=== PATIENT | female | born 1960 | race Caucasian/White ===

== ENCOUNTER 2018-11-18 21:37 | Inpatient (IN) | payer MEDICARE ==
[~2018-11-18] VITALS: Ht 162.6 cm; Wt 124.0 kg
[2018-11-18] MEDS ORDERED: ALBUTEROL/IPRATROPIUM 2.5MG/0.5MG, 3 ML NPPB ONE (23:00)
[2018-11-18 23:31] LABS: BASOPHILS # (AUTO) 0.03 x10^3/uL (0-0.1); BASOPHILS % (AUTO) 0 % (0-1); EOSINOPHILS # (AUTO) 0.24 x10^3/uL (0-0.4); EOSINOPHILS % (AUTO) 2 % (1-7); LYMPHOCYTES % (AUTO) 11 % (22-44); MD NO; MEAN CORPUSCULAR HEMOGLOBIN 29.6 pg (27.0-34.8); MEAN CORPUSCULAR HGB CONC 33.3 g/dL (32.4-35.8); MEAN CORPUSCULAR VOLUME 88.9 fL (80-100); MONOCYTES # (AUTO) 0.79 x10^3/uL (0.2-0.8); MONOCYTES % (AUTO) 8 % (2-9); NEUTROPHILS # (AUTO) 8.34 x10^3/uL (1.8-6.8); NEUTROPHILS % (AUTO) 79 % (42-75); PLATELET COUNT 324 x10^3/uL (130-400); RED BLOOD COUNT 4.47 x10^6/uL (3.82-5.3); RED CELL DISTRIBUTION WIDTH 13.6 % (9.6-15.2)
[2018-11-18 23:42] LABS: ALBUMIN 3.6 g/dL (3.4-5.0); ANION GAP 5 mmol/L (5-15); CALCIUM 8.8 mg/dL (8.5-10.1); CHLORIDE 105 mmol/L (98-107); CREATININE 0.76 mg/dL (0.55-1.02)
[2018-11-18 23:46] LABS: TROPONIN I < 0.015 ng/mL (0.000-0.045)
--- NOTE | 2018-11-19 00:26 | NUR ---
pt to room from lobby
--- NOTE | 2018-11-19 00:30 | NUR ---
FIRST CONTACT WITH PT. PT C/O SOB/COUGH X A FEW DAYS. HX OF ASTHMA. ALL MONITORS IN PLACE. CALL LIGHT WITHIN REACH. EDMD AT BEDSIDE TO ASSESS AT THIS TIME. PT'S AOX4.
--- NOTE | 2018-11-19 00:47 | NUR ---
PT MEDICATED PER EMAR. PT TOLERATED WELL. PT'S AOX4. RESPS EVEN AND UNLABORED.
[2018-11-19] MEDS ORDERED: SODIUM CHLORIDE FLUSH 10ML SYR IVF ONE (01:00)
--- NOTE | 2018-11-19 01:04 | NUR ---
PT IN CT NOW.
[2018-11-19] MEDS ORDERED: OMNIPAQUE 350 MG/ML, 100ML BOTTLE ONE (01:12)
--- NOTE | 2018-11-19 01:14 | NUR ---
PT BACK TO ROOM FROM CT.
[2018-11-19] MEDS ORDERED: SODIUM CHLORIDE FLUSH 10ML SYR IVF PRN (02:00)
--- NOTE | 2018-11-19 02:19 | NUR ---
PT MEDICATED PER EMAR. PT TOLERATED WELL. PT'S AOX4. RESPS EVEN AND UNLABORED.
[2018-11-19] MEDS ORDERED: ENOXAPARIN 120MG/0.8ML SQ ONE (02:30)
[2018-11-19] MEDS ORDERED: MORPHINE PO ×2 (02:32→02:33)
[2018-11-19] MEDS ORDERED: META800T PO (02:34)
[2018-11-19] MEDS ORDERED: GABA600T7 PO (02:34)
[2018-11-19] MEDS ORDERED: ESTR1.25 PO (02:35)
[2018-11-19] MEDS ORDERED: DILT120T4 PO (02:36)
[2018-11-19] MEDS ORDERED: ISOS30TA8 PO (02:37)
[2018-11-19] MEDS ORDERED: LEVO100T5 PO (02:38)
[2018-11-19] MEDS ORDERED: ACID REFLEX (02:38)
[2018-11-19] MEDS ORDERED: SUCR1TAB33 PO (02:39)
[2018-11-19] MEDS ORDERED: ALBU0.63 NEB (02:40)
[2018-11-19] MEDS ORDERED: ALBUTEROL SULFATE 2.5 MG/3 ML ONE ×5 (03:22→14:04)
[2018-11-19] MEDS ORDERED: ACETAMINOPHEN 325 MG TABLET PO PRN (03:30)
[2018-11-19] MEDS ORDERED: hydrALAzine 20 MG/ML, 1ML IVPush PRN (03:30)
[2018-11-19] MEDS ORDERED: POLYETHYLENE GLYCOL 17 GM PACKET PO PRN (03:30)
[2018-11-19] MEDS ORDERED: Enoxaparin 1 mg/kg protocol SQ SCH (03:30)
[2018-11-19] MEDS ORDERED: methylPREDNISolone SOD SUCC 40 MG/ML ONE ×3 (03:52→14:52)
[2018-11-19] MEDS: methylPREDNISolone SOD SUCC 40 MG/ML IVPush SCH ×4 (03:56→21:23)
--- NOTE | 2018-11-19 03:58 | NUR ---
PT MEDICATED PER EMAR. PT TOLERATED WELL.
--- NOTE | 2018-11-19 04:08 | NUR ---
MED ORDERED FROM PHARMACY.
[2018-11-19] MEDS: ENOXAPARIN 120MG/0.8ML SQ SCH ×2 (05:30→18:25)
[2018-11-19] MEDS: morphine SULFATE 60 MG TABLET.ER PO SCH ×2 (05:42→15:26)
[2018-11-19] MEDS: LEVOTHYROXINE 100 MCG TABLET PO SCH (05:42)
--- NOTE | 2018-11-19 05:44 | NUR ---
pt medicated per emar. pt tolerated well. pt's aox4. resps even and unlabored.
--- NOTE | 2018-11-19 06:29 | NUR ---
pt sleeping in [facility]. resps even and unlabored. all monitors in place. call light within reach.
[2018-11-19] MEDS: ALBUTEROL SULFATE 2.5 MG/3 ML NPPB SCH ×4 (06:40→20:10)
--- NOTE | 2018-11-19 06:55 | NUR ---
RECEIVED REPORT FROM KARYNA
--- NOTE | 2018-11-19 06:56 | NUR ---
report given to gillian dykes.
--- NOTE | 2018-11-19 07:22 | NUR ---
DIET TRAY ORDERED AND MEDS ORDERED
--- NOTE | 2018-11-19 08:30 | NUR ---
PT GIVEN MEDS AND MEAL TRAY DELIVERED.
[2018-11-19] MEDS ORDERED: GABAPENTIN 300 MG CAPSULE ONE ×2 (08:56→15:22)
[2018-11-19] MEDS ORDERED: ESTROGENS CONJUGATED 0.625 MG TABLET PO SCH (09:00)
[2018-11-19] MEDS: Metaxalone** 800 MG PO SCH ×3 (09:04→23:01)
[2018-11-19] MEDS: DILTIAZEM 120 MG TABLET PO SCH (09:04)
[2018-11-19] MEDS: ISOSORBIDE MONONITRATE ER 30 MG TABLET PO SCH (09:05)
[2018-11-19] MEDS: GABAPENTIN 300 MG CAPSULE PO SCH ×3 (09:05→21:23)
--- NOTE | 2018-11-19 10:00 | NUR ---
PT FINISHED 100% MEAL TRAY. PT RESTING IN BED.
--- NOTE | 2018-11-19 10:11 | NUR ---
RT AT BEDSIDE FOR BREATHING TREATMENT
--- NOTE | 2018-11-19 11:03 | NUR ---
PT RESTING IN BED.
--- NOTE | 2018-11-19 12:23 | NUR ---
PT SLEEPING AT THIS TIME. MEAL TRAY DELIVERED AND PLACED AT BEDSIDE.
--- NOTE | 2018-11-19 12:42 | NUR ---
PT. REMAINS MONITORED. VSS. PT. IS EATING LUNCH WITHOUT CONCERNS.
--- NOTE | 2018-11-19 13:40 | NUR ---
RT AT BEDSIDE GIVING PT BREATHING TREATMENT.
--- NOTE | 2018-11-19 14:38 | NUR ---
PT UP TO BR AND VOIDED.
--- NOTE | 2018-11-19 15:30 | NUR ---
PT SLEEPING AT THIS TIME.
--- NOTE | 2018-11-19 16:57 | NUR ---
DIET TRAY ORDERED. PT RESTING IN BED. VITALS STABLE.
--- NOTE | 2018-11-19 18:16 | NUR ---
received bed and will call report.
--- NOTE | 2018-11-19 18:44 | NUR ---
called report to kit dykes. pt will then be transferred to floor.
--- NOTE | 2018-11-19 19:12 | NUR ---
PT TRANSFERRED TO FLOOR.
[2018-11-19 19:38] VITALS: BP 148/74
[2018-11-19 21:18] LABS: PROTHROMBIN TIME 10.5 Seconds (9.6-11.5)
[2018-11-19] MEDS: SUCRALFATE 1 GM TABLET PO SCH (21:23)
[2018-11-19] MEDS: WARFARIN 10 MG TABLET PO-COUM SCH (23:02)
[2018-11-20] MEDS: methylPREDNISolone SOD SUCC 40 MG/ML IVPush SCH ×4 (03:21→21:57)
[2018-11-20] MEDS: morphine SULFATE 60 MG TABLET.ER PO SCH ×2 (03:22→15:54)
[2018-11-20 03:30] VITALS: BP 122/63
[2018-11-20 05:35] LABS: PROTHROMBIN TIME 10.5 Seconds (9.6-11.5)
[2018-11-20 05:44] LABS: ANION GAP 7 mmol/L (5-15); CALCIUM 9.1 mg/dL (8.5-10.1); CHLORIDE 104 mmol/L (98-107)
[2018-11-20 05:46] LABS: CREATININE 0.81 mg/dL (0.55-1.02)
[2018-11-20 05:57] LABS: BASOPHILS % (AUTO) 0 % (0-1); EOSINOPHILS % (AUTO) 0 % (1-7); LYMPHOCYTES # (AUTO) 0.49 x10^3/uL (1-3.4); LYMPHOCYTES % (AUTO) 7 % (22-44); MD NO; MEAN CORPUSCULAR HEMOGLOBIN 29.5 pg (27.0-34.8); MEAN CORPUSCULAR HGB CONC 32.9 g/dL (32.4-35.8); MEAN CORPUSCULAR VOLUME 89.6 fL (80-100); MEAN PLATELET VOLUME 8.3 fL (7.4-10.4); MONOCYTES # (AUTO) 0.48 x10^3/uL (0.2-0.8); MONOCYTES % (AUTO) 7 % (2-9); NEUTROPHILS # (AUTO) 5.88 x10^3/uL (1.8-6.8); NEUTROPHILS % (AUTO) 86 % (42-75); PLATELET COUNT 281 x10^3/uL (130-400); RED BLOOD COUNT 3.99 x10^6/uL (3.82-5.3); RED CELL DISTRIBUTION WIDTH 13.5 % (9.6-15.2)
[2018-11-20] MEDS: LEVOTHYROXINE 100 MCG TABLET PO SCH (06:17)
[2018-11-20] MEDS: ENOXAPARIN 120MG/0.8ML SQ SCH ×2 (06:17→17:20)
[2018-11-20] MEDS: ALBUTEROL SULFATE 2.5 MG/3 ML NPPB SCH ×4 (06:55→18:43)
[2018-11-20 07:36] VITALS: BP 133/72
[2018-11-20] MEDS: DILTIAZEM 120 MG TABLET PO SCH (10:20)
[2018-11-20] MEDS: GABAPENTIN 300 MG CAPSULE PO SCH ×3 (10:21→21:57)
[2018-11-20] MEDS: SUCRALFATE 1 GM TABLET PO SCH ×2 (10:21→21:57)
[2018-11-20] MEDS: ISOSORBIDE MONONITRATE ER 30 MG TABLET PO SCH (10:24)
[2018-11-20] MEDS: Metaxalone** 800 MG PO SCH ×3 (10:25→21:00)
[2018-11-20 13:00] VITALS: BP_SYST 128; BP_SYST 131; BP_DIAS 77
[2018-11-20] MEDS: morphine SULFATE 15 MG TAB.IR PO PRN (14:21)
[2018-11-20] MEDS: WARFARIN 10 MG TABLET PO-COUM SCH (17:19)
[2018-11-20] MEDS ORDERED: WARFARIN 3 MG TABLET PO-COUM SCH (18:00)
[2018-11-20] MEDS ORDERED: WARFARIN 2 MG TABLET PO-COUM ONE (18:30)
[2018-11-20 19:53] VITALS: BP 128/77
[2018-11-21] MEDS: morphine SULFATE 15 MG TAB.IR PO PRN ×3 (00:15→08:44)
[2018-11-21 01:34] VITALS: BP 141/84
[2018-11-21] MEDS: ALBUTEROL SULFATE 2.5 MG/3 ML NPPB SCH ×4 (01:38→15:20)
[2018-11-21] MEDS: methylPREDNISolone SOD SUCC 40 MG/ML IVPush SCH ×2 (03:09→08:37)
[2018-11-21] MEDS: morphine SULFATE 60 MG TABLET.ER PO SCH ×2 (03:10→16:01)
[2018-11-21] MEDS: ENOXAPARIN 120MG/0.8ML SQ SCH (05:17)
[2018-11-21] MEDS: LEVOTHYROXINE 100 MCG TABLET PO SCH (05:17)
[2018-11-21 05:51] LABS: INTERNATIONAL NORMALIZED RATIO 1.73 (0.93-1.1); PROTHROMBIN TIME 17.8 Seconds (9.6-11.5)
[2018-11-21] MEDS ORDERED: ALBUTEROL/IPRATROPIUM 2.5MG/0.5MG, 3 ML ONE (06:41)
[2018-11-21 06:49] VITALS: BP 151/75
[2018-11-21] MEDS: ISOSORBIDE MONONITRATE ER 30 MG TABLET PO SCH (08:37)
[2018-11-21] MEDS: SUCRALFATE 1 GM TABLET PO SCH (08:37)
[2018-11-21] MEDS: GABAPENTIN 300 MG CAPSULE PO SCH (08:37)
[2018-11-21] MEDS: DILTIAZEM 120 MG TABLET PO SCH (08:37)
[2018-11-21] MEDS: Metaxalone** 800 MG PO SCH (09:00)
[2018-11-21 13:19] VITALS: BP 130/77
[2018-11-21] MEDS ORDERED: ENOX120S5 SQ (13:22)
[2018-11-21] MEDS ORDERED: WARF10TA PO (13:22)
[2018-11-21] MEDS ORDERED: OMEP-110 PO (13:22)
[2018-11-21] MEDS ORDERED: FLUT1DIS3 INH (13:22)
[2018-11-21] MEDS ORDERED: PRED10TA PO (13:22)
[2018-11-21] MEDS ORDERED: ONDA4TAB7 PO (17:53)
== END 2018-11-21 17:57 | disposition home or self-care (01) | DRG 175 ==
LOC: ED 11-19 01:52 → EDIP 11-19 01:57 → ED 11-19 02:48 → 4WST 11-19 19:43 → DCLOUNGE 11-21 17:12
PROVIDERS: ADMIT Family Medicine; ATTEND Family Medicine
DX: I26.99 Other pulmonary embolism without acute cor pulmonale (principal); J96.00 Acute respiratory failure, unspecified whether with hypoxia or hypercapnia; D68.69 Other thrombophilia; J45.901 Unspecified asthma with (acute) exacerbation; Z68.42 Body mass index [BMI] 45.0-49.9, adult; Z88.2 Allergy status to sulfonamides; Z88.8 Allergy status to other drugs, medicaments and biological substances; E03.9 Hypothyroidism, unspecified; E66.01 Morbid (severe) obesity due to excess calories; G89.29 Other chronic pain; I10 Essential (primary) hypertension; M17.0 Bilateral primary osteoarthritis of knee; M71.20 Synovial cyst of popliteal space [Baker], unspecified knee; Z80.9 Family history of malignant neoplasm, unspecified; Z83.3 Family history of diabetes mellitus
CPT/HCPCS: 36415; 71045; 71275; 80048; 82040; 83880; 84484; 85025; 85610; 93005; 93970; 94640; 96372; 99285; G0378; J1650; J7613; J7620; Q9967; J2920; J7512

== ENCOUNTER 2018-11-27 09:45 | Inpatient (IN) | payer MEDICARE ==
[~2018-11-27] VITALS: Ht 162.6 cm; Wt 120.2 kg
[~2018-11-27 09:45] MED LIST: ACID REFLEX; ALBU0.63 NEB; DILT120T4 PO; ENOX120S5 SQ; ESTR1.25 PO; FLUT1DIS3 INH; GABA600T7 PO; ISOS30TA8 PO; LEVO100T5 PO; META800T PO; MORPHINE PO; OMEP-110 PO; ONDA4TAB7 PO; PRED10TA PO; SUCR1TAB33 PO; WARF10TA PO
--- NOTE | 2018-11-27 10:43 | NUR ---
Assumed care of patient. D/C last Sunday from [facility] after having a PE. Sent home on a coumadin bridge with Lovenox. INR drawn at clinic yesterday = 10. C/O excessive bruising from Lovenox shots and hematuria. Family at bedside. Will continue to monitor.
--- NOTE | 2018-11-27 10:55 | NUR ---
Ambulated with a steady gait to the restroom with walker from home.
[2018-11-27] MEDS ORDERED: SODIUM CHLORIDE FLUSH 10ML SYR IVF ONE (11:00)
[2018-11-27 11:04] LABS: BASOPHILS % (AUTO) 0 % (0-1); EOSINOPHILS % (AUTO) 0 % (1-7); LYMPHOCYTES # (AUTO) 0.97 x10^3/uL (1-3.4); LYMPHOCYTES % (AUTO) 9 % (22-44); MD NO; MEAN CORPUSCULAR HEMOGLOBIN 29.5 pg (27.0-34.8); MEAN CORPUSCULAR HGB CONC 33.2 g/dL (32.4-35.8); MEAN CORPUSCULAR VOLUME 88.9 fL (80-100); MEAN PLATELET VOLUME 8.5 fL (7.4-10.4); MONOCYTES # (AUTO) 0.15 x10^3/uL (0.2-0.8); MONOCYTES % (AUTO) 2 % (2-9); NEUTROPHILS % (AUTO) 89 % (42-75); PLATELET COUNT 305 x10^3/uL (130-400); RED BLOOD COUNT 4.31 x10^6/uL (3.82-5.3); RED CELL DISTRIBUTION WIDTH 14.1 % (9.6-15.2)
[2018-11-27 11:10] LABS: ALBUMIN 3.2 g/dL (3.4-5.0); ANION GAP 4 mmol/L (5-15); CALCIUM 8.2 mg/dL (8.5-10.1); CHLORIDE 103 mmol/L (98-107); CREATININE 0.68 mg/dL (0.55-1.02)
[2018-11-27 11:30] LABS: INTERNATIONAL NORMALIZED RATIO 11.77 (0.93-1.1); PROTHROMBIN TIME 112.4 Seconds (9.6-11.5)
--- NOTE | 2018-11-27 11:52 | NUR ---
Urine sent. No other needs at this time.
[2018-11-27] MEDS ORDERED: PHYTONADIONE 5 MG TABLET PO ONE (12:00)
[2018-11-27 12:12] LABS: MICROSCOPIC INDICATED
[2018-11-27 12:13] LABS: CULTURE INDICATED? YES
--- NOTE | 2018-11-27 12:28 | NUR ---
IV started. VSS.
[2018-11-27] MEDS ORDERED: CEFTRIAXONE PMX 1GM/50ML 50 ML IV ONE (12:30)
[2018-11-27] MEDS ORDERED: CEFTRIAXONE PMX 1GM/50ML 50 ML ONE (12:33)
[2018-11-27] MEDS ORDERED: MORPHINE SULFATE 4 MG/ML, 1ML IVPush PRN (13:00)
--- NOTE | 2018-11-27 13:00 | NUR ---
Attempted report at 1300. Called unit x 2, then stock broker supervisor. Fish Roe Technician to have primary RN call ELE.
--- NOTE | 2018-11-27 13:06 | NUR ---
Report to HOWARD Rosario
[2018-11-27 13:51] VITALS: BP 126/65
[2018-11-27] MEDS ORDERED: hydrALAzine 20 MG/ML, 1ML IVPush PRN (14:00)
[2018-11-27] MEDS ORDERED: ENALAPRILAT 1.25 MG/ML, 2ML IVPush PRN (14:00)
[2018-11-27] MEDS ORDERED: POLYETHYLENE GLYCOL 17 GM PACKET PO PRN (14:00)
[2018-11-27] MEDS ORDERED: LABETALOL 5 MG/ML SYRINGE IVPush PRN (14:00)
[2018-11-27] MEDS ORDERED: BISACODYL 10 MG SUPP PR PRN (14:00)
[2018-11-27] MEDS: CEFTRIAXONE PMX 1GM/50ML 50 ML IV SCH (14:00)
[2018-11-27 14:29] LABS: THYROID STIMULATING HORMONE 2.16 mIU/L (0.358-3.740)
[2018-11-27] MEDS: ALBUTEROL SULFATE 2.5 MG/3 ML NPPB SCH ×2 (15:00→20:55)
[2018-11-27] MEDS: Metaxalone** 800 MG HOMEMEDPO SCH ×2 (16:00→21:00)
[2018-11-27] MEDS ORDERED: ALBUTEROL SULFATE 2.5 MG/3 ML NPPB PRN (16:00)
[2018-11-27] MEDS: GABAPENTIN 300 MG CAPSULE PO SCH ×2 (17:00→22:43)
[2018-11-27 18:30] VITALS: BP 112/72
[2018-11-27] MEDS: BUDESONIDE 0.5 MG/2 ML INHA NPPB SCH (20:55)
[2018-11-27] MEDS: OMEPRAZOLE 20 MG CAPSULE.DR PO SCH (22:43)
[2018-11-27] MEDS: SUCRALFATE 1 GM TABLET PO SCH (22:44)
[2018-11-28 01:34] VITALS: BP 125/70
[2018-11-28] MEDS: ALBUTEROL SULFATE 2.5 MG/3 ML NPPB SCH ×4 (03:00→21:35)
[2018-11-28] MEDS: GABAPENTIN 300 MG CAPSULE PO PRN (03:20)
[2018-11-28] MEDS: LEVOTHYROXINE 100 MCG TABLET PO SCH (05:31)
[2018-11-28 06:27] LABS: BASOPHILS # (AUTO) 0.02 x10^3/uL (0-0.1); BASOPHILS % (AUTO) 0 % (0-1); EOSINOPHILS # (AUTO) 0.16 x10^3/uL (0-0.4); EOSINOPHILS % (AUTO) 2 % (1-7); LYMPHOCYTES # (AUTO) 3.33 x10^3/uL (1-3.4); LYMPHOCYTES % (AUTO) 33 % (22-44); MD NO; MEAN CORPUSCULAR HEMOGLOBIN 29.5 pg (27.0-34.8); MEAN CORPUSCULAR HGB CONC 33.5 g/dL (32.4-35.8); MEAN CORPUSCULAR VOLUME 88.1 fL (80-100); MEAN PLATELET VOLUME 8.2 fL (7.4-10.4); MONOCYTES # (AUTO) 0.74 x10^3/uL (0.2-0.8); MONOCYTES % (AUTO) 7 % (2-9); NEUTROPHILS % (AUTO) 58 % (42-75); PLATELET COUNT 259 x10^3/uL (130-400); RED BLOOD COUNT 4.06 x10^6/uL (3.82-5.3); RED CELL DISTRIBUTION WIDTH 13.8 % (9.6-15.2)
[2018-11-28 06:33] LABS: INTERNATIONAL NORMALIZED RATIO 3.61 (0.93-1.1); PROTHROMBIN TIME 36.1 Seconds (9.6-11.5)
[2018-11-28 06:38] LABS: CALCIUM 8.7 mg/dL (8.5-10.1); CHLORIDE 102 mmol/L (98-107)
[2018-11-28 06:44] LABS: ALANINE AMINOTRANSFERASE 55 U/L (12-78); ALBUMIN 3.1 g/dL (3.4-5.0); ALKALINE PHOSPHATASE 74 U/L (45-117); ANION GAP 5 mmol/L (5-15); BILIRUBIN,TOTAL 0.3 mg/dL (0.2-1.0); CREATININE 0.79 mg/dL (0.55-1.02)
[2018-11-28 07:01] VITALS: BP 111/61
[2018-11-28] MEDS: DILTIAZEM 120 MG TABLET PO SCH (08:45)
[2018-11-28] MEDS: GABAPENTIN 300 MG CAPSULE PO SCH ×3 (08:45→21:20)
[2018-11-28] MEDS: SUCRALFATE 1 GM TABLET PO SCH ×2 (08:45→21:21)
[2018-11-28] MEDS: OMEPRAZOLE 20 MG CAPSULE.DR PO SCH ×2 (08:46→21:20)
[2018-11-28] MEDS: ISOSORBIDE MONONITRATE ER 30 MG TABLET PO SCH (08:46)
[2018-11-28] MEDS ORDERED: MORPHINE SULFATE 4 MG/ML, 1ML IVPush PRN (09:00)
[2018-11-28] MEDS: Metaxalone** 800 MG HOMEMEDPO SCH ×3 (09:00→21:00)
[2018-11-28] MEDS: BUDESONIDE 0.5 MG/2 ML INHA NPPB SCH ×2 (09:13→21:35)
[2018-11-28] MEDS ORDERED: morphine SULFATE 60 MG TABLET.ER PO SCH (12:00)
[2018-11-28] MEDS ORDERED: MORPHINE 60 MG PO SCH (12:00)
[2018-11-28] MEDS: POTASSIUM CHLORIDE 20 MEQ TAB.ER.PRT PO SCH ×2 (12:06→21:21)
[2018-11-28 12:55] VITALS: BP 149/73
[2018-11-28 14:40] VITALS: BP 113/58
[2018-11-28] MEDS: CEFTRIAXONE PMX 1GM/50ML 50 ML IV SCH (14:42)
[2018-11-28] MEDS: morphine SULFATE 15 MG TAB.IR PO PRN ×2 (17:17→21:28)
[2018-11-28] MEDS: morphine SULFATE 60 MG TABLET.ER PO SCH (18:00)
[2018-11-28] MEDS ORDERED: WARFARIN 5 MG TABLET PO-COUM ONE (18:00)
[2018-11-28 20:40] VITALS: BP 125/78
[2018-11-29] MEDS: ALBUTEROL SULFATE 2.5 MG/3 ML NPPB SCH ×4 (02:43→21:10)
[2018-11-29] MEDS: ACETAMINOPHEN 325 MG TABLET PO PRN (02:58)
[2018-11-29] MEDS: GABAPENTIN 300 MG CAPSULE PO PRN (03:00)
[2018-11-29 03:30] VITALS: BP 139/83
[2018-11-29] MEDS: LEVOTHYROXINE 100 MCG TABLET PO SCH (06:01)
[2018-11-29] MEDS: morphine SULFATE 60 MG TABLET.ER PO SCH ×2 (06:02→18:00)
[2018-11-29 07:04] LABS: BASOPHILS # (AUTO) 0.05 x10^3/uL (0-0.1); BASOPHILS % (AUTO) 1 % (0-1); EOSINOPHILS # (AUTO) 0.35 x10^3/uL (0-0.4); EOSINOPHILS % (AUTO) 4 % (1-7); LYMPHOCYTES # (AUTO) 3.45 x10^3/uL (1-3.4); LYMPHOCYTES % (AUTO) 39 % (22-44); MD NO; MEAN CORPUSCULAR HEMOGLOBIN 29.4 pg (27.0-34.8); MEAN CORPUSCULAR HGB CONC 33.2 g/dL (32.4-35.8); MEAN CORPUSCULAR VOLUME 88.7 fL (80-100); MEAN PLATELET VOLUME 8.2 fL (7.4-10.4); MONOCYTES # (AUTO) 0.75 x10^3/uL (0.2-0.8); MONOCYTES % (AUTO) 8 % (2-9); NEUTROPHILS # (AUTO) 4.36 x10^3/uL (1.8-6.8); NEUTROPHILS % (AUTO) 49 % (42-75); PLATELET COUNT 252 x10^3/uL (130-400); RED BLOOD COUNT 3.92 x10^6/uL (3.82-5.3); RED CELL DISTRIBUTION WIDTH 14.4 % (9.6-15.2)
[2018-11-29 07:11] LABS: INTERNATIONAL NORMALIZED RATIO 2.93 (0.93-1.1); PROTHROMBIN TIME 29.5 Seconds (9.6-11.5)
[2018-11-29 07:15] LABS: ALBUMIN 2.7 g/dL (3.4-5.0); CALCIUM 8.3 mg/dL (8.5-10.1); CHLORIDE 106 mmol/L (98-107)
[2018-11-29 07:19] VITALS: BP 144/90
[2018-11-29 07:20] LABS: ALANINE AMINOTRANSFERASE 51 U/L (12-78); ALKALINE PHOSPHATASE 65 U/L (45-117); BILIRUBIN,TOTAL 0.3 mg/dL (0.2-1.0); CREATININE 0.67 mg/dL (0.55-1.02); TOTAL PROTEIN 6.3 g/dL (6.4-8.2)
[2018-11-29 07:25] LABS: ANION GAP 2 mmol/L (5-15)
[2018-11-29] MEDS: SUCRALFATE 1 GM TABLET PO SCH ×2 (08:00→21:23)
[2018-11-29] MEDS: DILTIAZEM 120 MG TABLET PO SCH (08:00)
[2018-11-29] MEDS: ISOSORBIDE MONONITRATE ER 30 MG TABLET PO SCH (08:00)
[2018-11-29] MEDS: GABAPENTIN 300 MG CAPSULE PO SCH ×3 (08:00→21:22)
[2018-11-29] MEDS: morphine SULFATE 15 MG TAB.IR PO PRN ×3 (08:00→21:23)
[2018-11-29] MEDS: OMEPRAZOLE 20 MG CAPSULE.DR PO SCH ×2 (08:00→21:23)
[2018-11-29] MEDS: POTASSIUM CHLORIDE 20 MEQ TAB.ER.PRT PO SCH ×2 (08:00→21:23)
[2018-11-29] MEDS: Metaxalone** 800 MG HOMEMEDPO SCH ×3 (08:01→21:23)
[2018-11-29] MEDS: BUDESONIDE 0.5 MG/2 ML INHA NPPB SCH ×2 (09:34→21:10)
[2018-11-29] MEDS: CEFTRIAXONE PMX 1GM/50ML 50 ML IV SCH (14:04)
[2018-11-29 14:15] VITALS: BP 105/67
[2018-11-29] MEDS ORDERED: WARFARIN 7.5 MG TABLET PO-COUM ONE (18:00)
[2018-11-29 19:51] VITALS: BP 107/70
[2018-11-30] MEDS ORDERED: DULO30CA43 PO (01:30)
[2018-11-30 01:53] VITALS: BP 126/76
[2018-11-30] MEDS: ALBUTEROL SULFATE 2.5 MG/3 ML NPPB SCH ×3 (02:24→14:34)
[2018-11-30] MEDS: ACETAMINOPHEN 325 MG TABLET PO PRN (05:10)
[2018-11-30] MEDS: GABAPENTIN 300 MG CAPSULE PO PRN ×2 (05:10→20:43)
[2018-11-30] MEDS: LEVOTHYROXINE 100 MCG TABLET PO SCH (06:14)
[2018-11-30] MEDS: morphine SULFATE 60 MG TABLET.ER PO SCH ×2 (06:14→18:00)
[2018-11-30 06:52] LABS: INTERNATIONAL NORMALIZED RATIO 2.99 (0.93-1.1); PROTHROMBIN TIME 30.1 Seconds (9.6-11.5)
[2018-11-30 07:06] VITALS: BP 128/78
[2018-11-30] MEDS: morphine SULFATE 15 MG TAB.IR PO PRN ×3 (08:34→20:42)
[2018-11-30] MEDS: GABAPENTIN 300 MG CAPSULE PO SCH ×3 (08:35→21:00)
[2018-11-30] MEDS: Metaxalone** 800 MG HOMEMEDPO SCH ×3 (08:35→20:43)
[2018-11-30] MEDS: POTASSIUM CHLORIDE 20 MEQ TAB.ER.PRT PO SCH ×2 (08:35→20:43)
[2018-11-30] MEDS: OMEPRAZOLE 20 MG CAPSULE.DR PO SCH ×2 (08:35→20:43)
[2018-11-30] MEDS: DILTIAZEM 120 MG TABLET PO SCH (08:35)
[2018-11-30] MEDS: ISOSORBIDE MONONITRATE ER 30 MG TABLET PO SCH (08:35)
[2018-11-30] MEDS: SUCRALFATE 1 GM TABLET PO SCH ×2 (08:35→20:43)
[2018-11-30] MEDS: BUDESONIDE 0.5 MG/2 ML INHA NPPB SCH ×2 (09:00→20:50)
[2018-11-30] MEDS ORDERED: LURA20TA PO (13:50)
[2018-11-30 14:07] VITALS: BP 125/75
[2018-11-30] MEDS: CEFTRIAXONE PMX 1GM/50ML 50 ML IV SCH (14:26)
[2018-11-30] MEDS: DOCUSATE 100 MG CAPSULE PO PRN ×2 (14:26→20:42)
[2018-11-30] MEDS: SENNOSIDES 8.8 MG/5 ML ORAL SOL PO SCH (16:02)
[2018-11-30] MEDS ORDERED: WARFARIN 5 MG TABLET PO-COUM ONE (18:00)
[2018-11-30 20:01] VITALS: BP 117/79
[2018-12-01 02:02] VITALS: BP 115/3
[2018-12-01 06:26] LABS: INTERNATIONAL NORMALIZED RATIO 3.69 (0.93-1.1); PROTHROMBIN TIME 36.8 Seconds (9.6-11.5)
[2018-12-01] MEDS: morphine SULFATE 60 MG TABLET.ER PO SCH (06:29)
[2018-12-01] MEDS: LEVOTHYROXINE 100 MCG TABLET PO SCH (06:30)
[2018-12-01 08:05] VITALS: BP 117/85
[2018-12-01] MEDS: SUCRALFATE 1 GM TABLET PO SCH (08:18)
[2018-12-01] MEDS: DILTIAZEM 120 MG TABLET PO SCH (08:18)
[2018-12-01] MEDS: POTASSIUM CHLORIDE 20 MEQ TAB.ER.PRT PO SCH (08:18)
[2018-12-01] MEDS: OMEPRAZOLE 20 MG CAPSULE.DR PO SCH (08:18)
[2018-12-01] MEDS: ISOSORBIDE MONONITRATE ER 30 MG TABLET PO SCH (08:18)
[2018-12-01] MEDS: SENNOSIDES 8.8 MG/5 ML ORAL SOL PO SCH (08:19)
[2018-12-01] MEDS: morphine SULFATE 15 MG TAB.IR PO PRN (08:21)
[2018-12-01] MEDS: Metaxalone** 800 MG HOMEMEDPO SCH (08:27)
[2018-12-01] MEDS: GABAPENTIN 300 MG CAPSULE PO SCH (08:30)
[2018-12-01] MEDS: BUDESONIDE 0.5 MG/2 ML INHA NPPB SCH (10:20)
[2018-12-01 12:49] VITALS: BP 103/63
[2018-12-01] MEDS: GABAPENTIN 300 MG CAPSULE PO PRN (13:13)
[2018-12-01] MEDS: CEFTRIAXONE PMX 1GM/50ML 50 ML IV SCH (14:07)
[2018-12-01] MEDS ORDERED: WARF2.5T PO (14:23)
[2018-12-01] MEDS ORDERED: WARFARIN 1 MG TABLET PO-COUM ONE (18:00)
== END 2018-12-01 17:26 | disposition home or self-care (01) | DRG 813 ==
LOC: ED 11:11 → EDIP 12:14 → 3NE 13:34
PROVIDERS: ADMIT Internal Medicine; ATTEND Internal Medicine
DX: D68.32 Hemorrhagic disorder due to extrinsic circulating anticoagulants (principal); J96.10 Chronic respiratory failure, unspecified whether with hypoxia or hypercapnia; Z68.42 Body mass index [BMI] 45.0-49.9, adult; N30.91 Cystitis, unspecified with hematuria; M79.81 Nontraumatic hematoma of soft tissue; E66.9 Obesity, unspecified; K59.03 Drug induced constipation; T40.2X5A Adverse effect of other opioids, initial encounter; G89.4 Chronic pain syndrome; E03.9 Hypothyroidism, unspecified; J45.909 Unspecified asthma, uncomplicated; B96.4 Proteus (mirabilis) (morganii) as the cause of diseases classified elsewhere; E87.6 Hypokalemia; G62.9 Polyneuropathy, unspecified; K22.70 Barrett's esophagus without dysplasia; M19.90 Unspecified osteoarthritis, unspecified site; M71.22 Synovial cyst of popliteal space [Baker], left knee; M71.21 Synovial cyst of popliteal space [Baker], right knee; R04.0 Epistaxis; T45.515A Adverse effect of anticoagulants, initial encounter; Z90.49 Acquired absence of other specified parts of digestive tract; Z90.710 Acquired absence of both cervix and uterus; Z90.89 Acquired absence of other organs; Z99.81 Dependence on supplemental oxygen; Z88.2 Allergy status to sulfonamides; Z88.1 Allergy status to other antibiotic agents; Z79.01 Long term (current) use of anticoagulants; Z86.711 Personal history of pulmonary embolism; Y92.89 Other specified places as the place of occurrence of the external cause
CPT/HCPCS: 36415; 74018; 74176; 80048; 80053; 81001; 82040; 83690; 83735; 84443; 85025; 85610; 85730; 87077; 87086; 87186; 94640; 96365; G0378; J0696; J7613; J7626

== ENCOUNTER 2018-12-05 22:35 | Emergency (ER) | payer MEDICARE ==
[~2018-12-05] VITALS: Ht 162.6 cm; Wt 120.0 kg
[~2018-12-05 22:35] MED LIST changes: +DULO30CA43 PO; +LURA20TA PO; +WARF2.5T PO
--- NOTE | 2018-12-05 23:10 | NUR ---
FIRST CONTACT WITH PT. DISCHARGED ON SUNDAY FOR A PE, PT STATES SHE IS NOW IN WITHDRAWALS FROM NARCOTICS. SHE IS HERE FROM [place], UNABLE TO TRAVEL BACK HOME, BEEN UNABLE TO GET A PAIN MANAGEMENT DOCTOR HERE. PT C/O ABD CRAMPING, +N/V/D. PT'S AOX4. REPS EVEN AND UNLABORED. AWAITING EDMD ASSESSMENT AT THIS TIME.
--- NOTE | 2018-12-05 23:48 | NUR ---
PT AMB TO BR WITH STEADY GAIT.
--- NOTE | 2018-12-05 23:53 | NUR ---
EDMD AT BEDSIDE TO ASSESS AT THIS TIME.
[2018-12-06] MEDS ORDERED: HYDROmorphone 1 MG/ML, 1ML AMP IM STA (00:10)
[2018-12-06] MEDS ORDERED: PROMETHAZINE 25 MG/ML, 1ML IM STA (00:10)
[2018-12-06] MEDS ORDERED: PROMETHAZINE 25 MG/ML, 1ML ONE (00:15)
[2018-12-06] MEDS ORDERED: HYDROmorphone 1 MG/ML, 1ML AMP ONE (00:16)
--- NOTE | 2018-12-06 00:26 | NUR ---
PT MEDICATED PER EMAR. PT TOLERATED WELL. PT'S AOX4. RESPS EVEN AND UNLABORED.
[2018-12-06] MEDS ORDERED: morphine SULFATE 60 MG TABLET.ER PO ONE (01:30)
[2018-12-06 02:05] VITALS: BP 113/50
--- NOTE | 2018-12-06 02:06 | NUR ---
PT GIVEN DC INSTRUCTIONS AND SCRIPT. PT EDUCATED REGARDING DC MEDICATION. PT WHEELED TO DC. NO ACUTE DISTRESS AT DC.
== END 2018-12-06 02:07 | disposition home or self-care (01) ==
LOC: ED 23:59
DX: G89.29 Other chronic pain (principal); F11.23 Opioid dependence with withdrawal; R11.2 Nausea with vomiting, unspecified; R19.7 Diarrhea, unspecified; J45.909 Unspecified asthma, uncomplicated
CPT/HCPCS: 96372; 99283; J1170; J2550

== ENCOUNTER 2019-02-22 21:08 | Inpatient (IN) | payer MEDICARE ==
[~2019-02-22] VITALS: Ht 162.6 cm; Wt 119.2 kg
--- NOTE | 2019-02-22 21:36 | NUR ---
PT PRESENTED WITH C/O STERNAL CP CAUSING SOB INTERMITTENT X4 DAYS, ALSO REPORTING NAUSEA, +CONGESTED COUGH. MONITORS APPLIED, SIDERAILS UP X2, CALL LIGHT WITHIN REACH
[2019-02-22] MEDS ORDERED: WARF3TAB PO (21:43)
[2019-02-22 21:47] LABS: BASOPHILS # (AUTO) 0.04 x10^3/uL (0-0.1); BASOPHILS % (AUTO) 0 % (0-1); EOSINOPHILS # (AUTO) 0.03 x10^3/uL (0-0.4); EOSINOPHILS % (AUTO) 0 % (1-7); LYMPHOCYTES # (AUTO) 2.05 x10^3/uL (1-3.4); LYMPHOCYTES % (AUTO) 22 % (22-44); MD NO; MEAN CORPUSCULAR HEMOGLOBIN 29.5 pg (27.0-34.8); MEAN CORPUSCULAR VOLUME 89.2 fL (80-100); MEAN PLATELET VOLUME 8.2 fL (7.4-10.4); MONOCYTES # (AUTO) 0.39 x10^3/uL (0.2-0.8); MONOCYTES % (AUTO) 4 % (2-9); NEUTROPHILS # (AUTO) 6.93 x10^3/uL (1.8-6.8); NEUTROPHILS % (AUTO) 73 % (42-75); PLATELET COUNT 361 x10^3/uL (130-400); RED BLOOD COUNT 4.97 x10^6/uL (3.82-5.3); RED CELL DISTRIBUTION WIDTH 14.5 % (9.6-15.2)
[2019-02-22] MEDS ORDERED: WARF2TAB PO (21:47)
[2019-02-22] MEDS ORDERED: MORPHINE ER PO (21:47)
[2019-02-22 21:59] LABS: ALANINE AMINOTRANSFERASE 13 U/L (12-78); ALBUMIN 4.2 g/dL (3.4-5.0); ANION GAP 6 mmol/L (5-15); CALCIUM 9.9 mg/dL (8.5-10.1); CHLORIDE 103 mmol/L (98-107); CREATININE 0.84 mg/dL (0.55-1.02)
[2019-02-22 22:03] LABS: ALKALINE PHOSPHATASE 102 U/L (45-117); BILIRUBIN,TOTAL 0.4 mg/dL (0.2-1.0); TOTAL PROTEIN 8.6 g/dL (6.4-8.2); TROPONIN I < 0.015 ng/mL (0.000-0.045)
[2019-02-22 22:07] LABS: INTERNATIONAL NORMALIZED RATIO 1.8 (0.93-1.1); PROTHROMBIN TIME 18.5 Seconds (9.6-11.5)
--- NOTE | 2019-02-22 22:20 | NUR ---
PT TO CT
[2019-02-22] MEDS ORDERED: OMNIPAQUE 350 MG/ML, 100ML BOTTLE ONE (22:24)
--- NOTE | 2019-02-22 22:53 | NUR ---
PT RESTING ON GURNEY, DENIES NEEDS, MONITORS IN PLACE, CALL LIGHT WITHIN REACH. ERP AT BEDSIDE FOR RECHECK
--- NOTE | 2019-02-22 23:07 | NUR ---
PT UP TO RR WITH STANDBY ASSIST, CANE USE, ON 2l N/C O2.
[2019-02-22] MEDS ORDERED: ASPIRIN 81 MG TABLET CHEW ONE (23:08)
--- NOTE | 2019-02-22 23:17 | NUR ---
PT AASISTED BACK TO ROOM, RESTING ON GURNEY, MONITORS IN PLACE, CALL LIGHT WITHIN REACH. AWAITING ADMIT AT THIS TIME
[2019-02-22] MEDS ORDERED: ASPIRIN 81 MG TABLET CHEW PO ONE (23:30)
[2019-02-22 23:51] VITALS: BP 115/71
[2019-02-23] MEDS ORDERED: TEMAZEPAM 15 MG CAPSULE PO PRN (00:30)
[2019-02-23] MEDS ORDERED: ACETAMINOPHEN 325 MG TABLET PO PRN (00:30)
[2019-02-23] MEDS ORDERED: LIDODERM 5% PATCH TD PRN (00:30)
[2019-02-23] MEDS ORDERED: morphine SULFATE 10 MG/ML, 1ML IVPush ONE (00:30)
[2019-02-23] MEDS ORDERED: ONDANSETRON ODT 4 MG PO PRN (00:30)
[2019-02-23] MEDS ORDERED: WARFARIN 1 MG TABLET PO-COUM ONE (00:30)
[2019-02-23] MEDS ORDERED: hydrALAzine 20 MG/ML, 1ML IVPush PRN (00:30)
[2019-02-23] MEDS ORDERED: POLYETHYLENE GLYCOL 17 GM PACKET PO PRN (00:30)
[2019-02-23 02:30] VITALS: BP 115/63
[2019-02-23 04:05] LABS: INTERNATIONAL NORMALIZED RATIO 1.84 (0.93-1.1); PROTHROMBIN TIME 18.9 Seconds (9.6-11.5)
[2019-02-23 04:13] LABS: TROPONIN I < 0.015 ng/mL (0.000-0.045)
[2019-02-23] MEDS: ALBUTEROL SULFATE 2.5 MG/3 ML NPPB SCH ×4 (04:30→21:56)
[2019-02-23 06:22] VITALS: BP 117/76
[2019-02-23] MEDS ORDERED: REGADENOSON 0.4 MG/5 ML SYRINGE ONE (08:19)
[2019-02-23] MEDS: morphine SULFATE 15 MG TAB.IR PO PRN ×2 (08:50→16:42)
[2019-02-23] MEDS: BUDESONIDE 0.5 MG/2 ML INHA NPPB SCH ×2 (09:00→21:00)
[2019-02-23 12:38] LABS: TROPONIN I < 0.015 ng/mL (0.000-0.045)
[2019-02-23 13:10] VITALS: BP 145/96
[2019-02-23] MEDS: GABAPENTIN 300 MG CAPSULE PO SCH ×3 (14:36→20:20)
[2019-02-23 17:55] VITALS: BP 104/72
[2019-02-23] MEDS ORDERED: WARFARIN 2 MG TABLET PO-COUM SCH (18:00)
[2019-02-23 19:06] VITALS: BP 104/61
[2019-02-24] MEDS: morphine SULFATE 15 MG TAB.IR PO PRN ×2 (01:01→10:10)
[2019-02-24 01:06] VITALS: BP 103/66
[2019-02-24] MEDS: ALBUTEROL SULFATE 2.5 MG/3 ML NPPB SCH ×3 (04:00→13:49)
[2019-02-24 05:27] LABS: BASOPHILS # (AUTO) 0.04 x10^3/uL (0-0.1); BASOPHILS % (AUTO) 1 % (0-1); EOSINOPHILS # (AUTO) 0.13 x10^3/uL (0-0.4); EOSINOPHILS % (AUTO) 2 % (1-7); LYMPHOCYTES # (AUTO) 2.79 x10^3/uL (1-3.4); LYMPHOCYTES % (AUTO) 36 % (22-44); MD NO; MEAN CORPUSCULAR HEMOGLOBIN 29.4 pg (27.0-34.8); MEAN CORPUSCULAR HGB CONC 32.9 g/dL (32.4-35.8); MEAN CORPUSCULAR VOLUME 89.5 fL (80-100); MEAN PLATELET VOLUME 8.4 fL (7.4-10.4); MONOCYTES # (AUTO) 0.66 x10^3/uL (0.2-0.8); MONOCYTES % (AUTO) 9 % (2-9); NEUTROPHILS # (AUTO) 4.08 x10^3/uL (1.8-6.8); NEUTROPHILS % (AUTO) 53 % (42-75); PLATELET COUNT 306 x10^3/uL (130-400); RED BLOOD COUNT 4.56 x10^6/uL (3.82-5.3); RED CELL DISTRIBUTION WIDTH 14.6 % (9.6-15.2)
[2019-02-24 05:44] LABS: ANION GAP 8 mmol/L (5-15); CALCIUM 9.3 mg/dL (8.5-10.1); CHLORIDE 104 mmol/L (98-107); INTERNATIONAL NORMALIZED RATIO 1.93 (0.93-1.1); PROTHROMBIN TIME 19.8 Seconds (9.6-11.5)
[2019-02-24 06:19] VITALS: BP 116/72
[2019-02-24] MEDS: BUDESONIDE 0.5 MG/2 ML INHA NPPB SCH (06:46)
[2019-02-24] MEDS ORDERED: POTASSIUM CHLORIDE 20 MEQ TAB.ER.PRT PO ONE (09:30)
[2019-02-24] MEDS: GABAPENTIN 300 MG CAPSULE PO SCH ×2 (10:10→17:00)
[2019-02-24] MEDS ORDERED: BUDE0.5A NPPB (10:59)
[2019-02-24 12:05] VITALS: BP 134/85
[2019-02-24] MEDS ORDERED: WARFARIN 3 MG TABLET PO-COUM ONE (18:00)
== END 2019-02-24 18:37 | disposition home or self-care (01) | DRG 303 ==
LOC: ED 23:01 → EDIP 23:35 → 5SO 23:47 → 4WST 02-23 17:47
PROVIDERS: ADMIT Internal Medicine; ATTEND Internal Medicine
DX: I25.10 Atherosclerotic heart disease of native coronary artery without angina pectoris (principal); J96.10 Chronic respiratory failure, unspecified whether with hypoxia or hypercapnia; F11.23 Opioid dependence with withdrawal; D68.69 Other thrombophilia; E66.2 Morbid (severe) obesity with alveolar hypoventilation; Z68.42 Body mass index [BMI] 45.0-49.9, adult; J44.1 Chronic obstructive pulmonary disease with (acute) exacerbation; J96.11 Chronic respiratory failure with hypoxia; Z88.5 Allergy status to narcotic agent; Z88.2 Allergy status to sulfonamides; Z88.8 Allergy status to other drugs, medicaments and biological substances; E03.9 Hypothyroidism, unspecified; I34.0 Nonrheumatic mitral (valve) insufficiency; G89.29 Other chronic pain; K22.70 Barrett's esophagus without dysplasia; Z79.01 Long term (current) use of anticoagulants; Z79.890 Hormone replacement therapy; Z79.899 Other long term (current) drug therapy; Z80.9 Family history of malignant neoplasm, unspecified; Z83.3 Family history of diabetes mellitus; Z86.711 Personal history of pulmonary embolism; Z90.710 Acquired absence of both cervix and uterus; Z99.81 Dependence on supplemental oxygen; I11.0 Hypertensive heart disease with heart failure
CPT/HCPCS: 36415; 71275; 78452; 80048; 80053; 83735; 83880; 84484; 85025; 85610; 93005; 93017; 93306; 94640; G0378; J2785; J7613; J7626; Q9967; A9502; C9898; J2270